=== PATIENT | male | born 2000 | race Hispanic/Latino ===

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

== ENCOUNTER 2021-01-01 12:22 | Emergency (ER) | payer OTHER | END 2021-01-01 12:54 | LOC: ERS 12:22 | DX: Z53.21 Procedure and treatment not carried out due to patient leaving prior to being seen by health care provider (principal) ==

== ENCOUNTER 2021-01-02 18:52 | Emergency (ER) | payer OTHER | END 2021-01-02 21:20 | disposition home or self-care (01) | LOC: ERS 18:52 | DX: S50.312A Abrasion of left elbow, initial encounter (principal); M54.9 Dorsalgia, unspecified; V29.9XXA Motorcycle rider (driver) (passenger) injured in unspecified traffic accident, initial encounter; Y92.481 Parking lot as the place of occurrence of the external cause | CPT/HCPCS: 70450; 71260; 72125; 74177 ==

== ENCOUNTER 2021-01-17 21:32 | Emergency (ER) | payer OTHER ==
[2021-01-17] MEDS ORDERED: Ondansetron PF 4 MG/2 ML Vial ONE (21:40)
[2021-01-17 21:49] LABS: #Eosinphils 0.1 thou/uL (0.0-0.7); #Monocytes 0.5 thou/uL (0.11-0.59); #Neutrophils 4.4 thou/uL (1.40-6.50); %Basophils 0.4 % (0.0-1.0); %Eosinophils 1.6 % (0.0-10.0); %Lymphocytes 37.2 % (28.0-48.0); %Monocytes 6.3 % (0.0-4.0); %Neutrophils 54.4 % (31.0-61.0); Hemoglobin 13.5 g/dL (14.0-18.0); Mean Corpuscular HGB CONC 32.2 g/dL (32.0-36.0); Mean Corpuscular Hemoglobin 27.3 pg (25.0-35.0); Mean Corpuscular Volume 84.9 fL (78.0-98.0); Mean Platelet Volume 6.1 fL (7.4-10.4); Platelet Count 365 thou/uL (130-400); RBC Distribution Width 11.6 % (11.5-14.5); Red Blood Cell (RBC) Count 4.93 mill/uL (4.00-5.20)
[2021-01-17 22:10] LABS: ALT (SGPT) 11 U/L (8-55); AST (SGOT) 16 U/L (10-45); Albumin 4.5 g/dL (3.5-5.0); Alkaline Phosphatase 87 U/L (50-130); Anion Gap 13 mmol/L (10-20); BUN (Urea Nitrogen) 10 mg/dL (8.4-21.0); Bilirubin, Total 0.6 mg/dL (0.2-1.2); Calc. Creatinine Clearance 0 mL/min (70-130); Calcium 9.2 mg/dL (7.8-10.44); Carbon Dioxide 23 mmol/L (22-29); Chloride 106 mmol/L (98-107); Globulin 2.9 g/dL (2.4-3.5); Glucose 103 mg/dL (70-105); Potassium 3.3 mmol/L (3.5-5.1); Protein, Total 7.4 g/dL (6.0-8.3); Sodium 139 mmol/L (136-145)
== END 2021-01-17 23:10 | disposition home or self-care (01) ==
LOC: ERS 21:32
DX: F43.0 Acute stress reaction (principal)
CPT/HCPCS: 71045; 80053; 84484; 85025; 93005; 96374; J2405

== ENCOUNTER 2021-01-18 16:05 | Emergency (ER) | payer OTHER ==
[2021-01-18 17:11] LABS: #Eosinphils 0.1 thou/uL (0.0-0.7); #Lymphocytes 1.7 thou/uL (1.20-3.40); #Monocytes 0.5 thou/uL (0.11-0.59); #Neutrophils 4.6 thou/uL (1.40-6.50); %Basophils 0.6 % (0.0-1.0); %Lymphocytes 24.7 % (28.0-48.0); %Monocytes 7.1 % (0.0-4.0); %Neutrophils 65.7 % (31.0-61.0); Hemoglobin 12.9 g/dL (14.0-18.0); Mean Corpuscular HGB CONC 33.6 g/dL (32.0-36.0); Mean Corpuscular Hemoglobin 28.6 pg (25.0-35.0); Mean Corpuscular Volume 84.9 fL (78.0-98.0); Mean Platelet Volume 6.3 fL (7.4-10.4); Platelet Count 314 thou/uL (130-400); RBC Distribution Width 11.6 % (11.5-14.5); White Blood Cell (WBC) Count 6.9 thou/uL (4.8-10.8)
[2021-01-18 17:41] LABS: Anion Gap 13 mmol/L (10-20); BUN (Urea Nitrogen) 15 mg/dL (8.4-21.0); Calc. Creatinine Clearance 0 mL/min (70-130); Calcium 9.1 mg/dL (7.8-10.44); Carbon Dioxide 21 mmol/L (22-29); Chloride 107 mmol/L (98-107); Glucose 94 mg/dL (70-105); Sodium 137 mmol/L (136-145)
== END 2021-01-18 18:22 ==
LOC: ERS 16:05 → EEVIPCON 16:05 → ERS 18:22
DX: T75.4XXA Electrocution, initial encounter (principal); S60.222A Contusion of left hand, initial encounter; S70.02XA Contusion of left hip, initial encounter; S00.83XA Contusion of other part of head, initial encounter; W18.30XA Fall on same level, unspecified, initial encounter
CPT/HCPCS: 36415; 70450; 70486; 80048; 85025; 93005

== ENCOUNTER 2021-02-01 20:02 | Emergency (ER) | payer OTHER | END 2021-02-01 21:00 | LOC: ERS 20:02 | DX: F41.0 Panic disorder [episodic paroxysmal anxiety] (principal); F43.0 Acute stress reaction | CPT/HCPCS: 93005 ==

== ENCOUNTER 2021-05-06 19:41 | Emergency (ER) | payer OTHER ==
[2021-05-06 20:26] LABS: #Eosinphils 0.1 thou/uL (0.0-0.7); #Lymphocytes 1.8 thou/uL (1.20-3.40); #Monocytes 0.5 thou/uL (0.11-0.59); #Neutrophils 6.1 thou/uL (1.40-6.50); %Basophils 0.4 % (0.0-1.0); %Eosinophils 1.4 % (0.0-10.0); %Lymphocytes 20.9 % (28.0-48.0); %Monocytes 5.7 % (0.0-4.0); %Neutrophils 71.6 % (31.0-61.0); Hemoglobin 13.1 g/dL (14.0-18.0); Mean Corpuscular HGB CONC 33.6 g/dL (32.0-36.0); Mean Corpuscular Volume 86.3 fL (78.0-98.0); Mean Platelet Volume 6.6 fL (7.4-10.4); Platelet Count 280 thou/uL (130-400); Red Blood Cell (RBC) Count 4.51 mill/uL (4.00-5.20); White Blood Cell (WBC) Count 8.6 thou/uL (4.8-10.8)
[2021-05-06 20:46] LABS: Acetaminophen Less than 6.0 mcg/mL (10.0-30.0); Alcohol Less than 10 mg/dL (Less than 10); Salicylate Less than 8.0 mg/dL (15.0-30.0)
[2021-05-06 20:47] LABS: ALT (SGPT) 9 U/L (8-55); AST (SGOT) 16 U/L (10-45); Albumin 4.4 g/dL (3.5-5.0); Alkaline Phosphatase 87 U/L (50-130); Anion Gap 13 mmol/L (10-20); BUN (Urea Nitrogen) 8 mg/dL (8.4-21.0); Bilirubin, Total 0.3 mg/dL (0.2-1.2); CK (CPK) 175 U/L (30-200); Calc. Creatinine Clearance 0 mL/min (70-130); Calcium 9.3 mg/dL (7.8-10.44); Carbon Dioxide 22 mmol/L (22-29); Chloride 109 mmol/L (98-107); Globulin 2.5 g/dL (2.4-3.5); Glucose 124 mg/dL (70-105); Potassium 3.6 mmol/L (3.5-5.1); Protein, Total 6.9 g/dL (6.0-8.3); Sodium 140 mmol/L (136-145)
[2021-05-06 21:07] LABS: Bilirubin Negative (Negative); Blood, Urine Negative (Negative); Clarity Clear (Clear); Glucose, Urine (Dipstick) Normal (Negative); Ketone, Urine Negative (Negative); Leukocyte Negative Leu/uL (Negative); Nitrite Negative (Negative); Protein, Urine (Dipstick) Negative (Neg-Trace); Specific Gravity, Urine 1.011 (1.002-1.036); Urobilinogen Normal mg/dL (Less than 2)
[2021-05-06 21:16] LABS: Amphetamine Not Detected (NotDetected); Barbiturates Screen Not Detected (NotDetected); Benzodiazepine Screen Not Detected (NotDetected); Cocaine Metabolite Screen Not Detected (NotDetected); Methadone Not Detected (NotDetected); Methamphetamine Not Detected (NotDetected); Opiate Screen Not Detected (NotDetected); Oxycodone Screen Not Detected (NotDetected); Phencyclidine (PCP) Not Detected (NotDetected); THC/Cannabinoid Screen Not Detected (NotDetected); Tricyclic Screen Not Detected (NotDetected)
== END 2021-05-06 22:50 | disposition home or self-care (01) ==
LOC: ERS 19:41
DX: R44.3 Hallucinations, unspecified (principal); F17.210 Nicotine dependence, cigarettes, uncomplicated
CPT/HCPCS: 36415; 80053; 80306; 80307; 81003; 82550; 84443; 85025; 93005

== ENCOUNTER 2021-05-17 20:55 | Inpatient (IN) | payer OTHER ==
[2021-05-17] MEDS ORDERED: ceFAZolin 2 GM/DEX 5% 100 ML BAG ONE (21:00)
[2021-05-17] MEDS ORDERED: Fentanyl 100 MCG/2 ML VIAL ONE (21:00)
[2021-05-17 22:29] LABS: Mean Corpuscular HGB CONC 33.2 g/dL (32.0-36.0); Mean Corpuscular Hemoglobin 27.9 pg (25.0-35.0); Mean Corpuscular Volume 84.1 fL (78.0-98.0); Platelet Count 195 thou/uL (130-400); RBC Distribution Width 11.8 % (11.5-14.5); Red Blood Cell (RBC) Count 5.03 mill/uL (4.00-5.20); White Blood Cell (WBC) Count 6.4 thou/uL (4.8-10.8)
[2021-05-17 22:31] LABS: INR-International Normal Ratio 1.2; PTT 25.6 sec (22.9-36.1); Prothrombin Time 15.1 sec (12.0-14.7)
[2021-05-17 22:40] LABS: ALT (SGPT) 19 U/L (8-55); AST (SGOT) 28 U/L (10-45); Albumin 4.1 g/dL (3.5-5.0); Alkaline Phosphatase 79 U/L (50-130); Anion Gap 16 mmol/L (10-20); BUN (Urea Nitrogen) 6 mg/dL (8.4-21.0); Bilirubin, Total 0.3 mg/dL (0.2-1.2); Calc. Creatinine Clearance 0 mL/min (70-130); Carbon Dioxide 16 mmol/L (22-29); Chloride 111 mmol/L (98-107); Globulin 2.6 g/dL (2.4-3.5); Glucose 102 mg/dL (70-105); Potassium 4.1 mmol/L (3.5-5.1); Protein, Total 6.7 g/dL (6.0-8.3); Sodium 139 mmol/L (136-145)
[2021-05-17 22:51] LABS: Band 21 % (5-11); Eosinophils 1 % (0-10); Lymphocytes 32 % (28-48); MDiff Complete? YES; Monocytes 6 % (0-4); Neutrophil 40 % (31-61)
[2021-05-18] MEDS ORDERED: Ondansetron PF 4 MG/2 ML Vial IVP PRN (02:57)
[2021-05-18] MEDS ORDERED: Cyclobenzaprine 10 MG TAB PO PRN (02:57)
[2021-05-18] MEDS ORDERED: traMADol HCl 50 MG TAB PO PRN ×2 (02:57)
[2021-05-18] MEDS ORDERED: Dextrose 5% in Water 1,000 ML IV PRN (02:57)
[2021-05-18] MEDS ORDERED: hydrALAZINE 20 MG/ML VIAL SLOW IVP PRN (02:57)
[2021-05-18] MEDS ORDERED: Dextrose 50% Abboject 50 ML SYRINGE SLOW IVP PRN (02:57)
[2021-05-18] MEDS ORDERED: Ondansetron ODT 4 MG TAB PO PRN (02:57)
[2021-05-18] MEDS ORDERED: Sodium Chloride 0.9% 1,000 ML IV SCH (03:30)
[2021-05-18] MEDS ORDERED: Dexamethasone 10 MG/ML VIAL SLOW IVP SCH (03:30)
[2021-05-18 03:37] VITALS: BMI 18.8
[2021-05-18 05:07] LABS: #Eosinphils 0.1 thou/uL (0.0-0.7); #Lymphocytes 1.5 thou/uL (1.20-3.40); #Monocytes 0.7 thou/uL (0.11-0.59); #Neutrophils 3.4 thou/uL (1.40-6.50); %Basophils 0.3 % (0.0-1.0); %Monocytes 11.8 % (0.0-4.0); %Neutrophils 60.9 % (31.0-61.0); Hemoglobin 13.1 g/dL (14.0-18.0); Mean Corpuscular HGB CONC 33.2 g/dL (32.0-36.0); Mean Corpuscular Hemoglobin 27.8 pg (25.0-35.0); Mean Corpuscular Volume 83.7 fL (78.0-98.0); Mean Platelet Volume 6.9 fL (7.4-10.4); Platelet Count 250 thou/uL (130-400); RBC Distribution Width 11.8 % (11.5-14.5); Red Blood Cell (RBC) Count 4.72 mill/uL (4.00-5.20); White Blood Cell (WBC) Count 5.7 thou/uL (4.8-10.8)
[2021-05-18 05:25] LABS: Anion Gap 12 mmol/L (10-20); BUN (Urea Nitrogen) 5 mg/dL (8.4-21.0); Calc. Creatinine Clearance 135 mL/min (70-130); Calcium 8.9 mg/dL (7.8-10.44); Carbon Dioxide 23 mmol/L (22-29); Chloride 108 mmol/L (98-107); Glucose 96 mg/dL (70-105); Potassium 3.6 mmol/L (3.5-5.1); Sodium 139 mmol/L (136-145)
[2021-05-18 05:58] LABS: SARS-CoV-2 NAA Rapid Test Not Detected (NotDetected)
[2021-05-18] MEDS: Acetaminophen 500 MG TAB PO SCH ×3 (06:18→18:39)
[2021-05-18] MEDS: Famotidine 20 MG TAB PO SCH ×2 (08:33→20:55)
[2021-05-18] MEDS ORDERED: FLU VACC QS2021-22(6MOS UP)/PF 60 MCG/0.5 ML SYRINGE IM ONE (09:00)
[2021-05-18] MEDS: Sodium Chloride 0.9% 1,000 ML IV SCH ×2 (12:44→18:43)
[2021-05-18] MEDS ORDERED: Ibuprofen 800 MG TAB PO SCH ×2 (13:00→16:44)
[2021-05-18] MEDS: Ibuprofen 200 MG TAB PO SCH (20:55)
[2021-05-19] MEDS: Sodium Chloride 0.9% 1,000 ML IV SCH (00:22)
[2021-05-19] MEDS: Acetaminophen 500 MG TAB PO SCH ×3 (00:22→12:31)
[2021-05-19] MEDS: Ibuprofen 200 MG TAB PO SCH ×3 (02:33→11:07)
[2021-05-19] MEDS: Famotidine 20 MG TAB PO SCH (08:48)
[2021-05-19] MEDS ORDERED: Enoxaparin Sodium 40 MG/0.4 ML SYRINGE SC SCH (09:00)
[2021-05-19 12:05] VITALS: BP 122/73; TEMP 98.1
== END 2021-05-19 12:00 | disposition home or self-care (01) | DRG 605 ==
LOC: ERS 20:55 → INTOOBSV 23:34 → SURG A 23:34 → OBSVTOIN 05-18 16:54
PROVIDERS: ADMIT Specialist; ATTEND Surgery
DX: S20.211A Contusion of right front wall of thorax, initial encounter (principal); M62.82 Rhabdomyolysis; S80.01XA Contusion of right knee, initial encounter; F31.9 Bipolar disorder, unspecified; F90.9 Attention-deficit hyperactivity disorder, unspecified type; M48.061 Spinal stenosis, lumbar region without neurogenic claudication; V29.49XA Motorcycle driver injured in collision with other motor vehicles in traffic accident, initial encounter; Y92.410 Unspecified street and highway as the place of occurrence of the external cause; Z79.899 Other long term (current) drug therapy
CPT/HCPCS: 36415; 70450; 70486; 71045; 71260; 72125; 72141; 72146; 72148; 72170; 74177; 80048; 80053; 82550; 85025; 85610; 85730; 86850; 86900; 86901; 90471; 90686; 93005; 96375; G0008; G0378; G0390; J1100; J1650; J3010; J7050; Q9967; U0002

== ENCOUNTER 2021-06-17 17:58 | Emergency (ER) | payer OTHER | END 2021-06-17 18:31 | disposition left against medical advice (07) | LOC: ERS 17:58 | DX: R41.82 Altered mental status, unspecified (principal) | CPT/HCPCS: 99283 ==